=== PATIENT | female | born 1990 | race Caucasian/White ===

== ENCOUNTER 2017-08-18 12:30 | Emergency (ER) | payer SELFPAY ==
--- NOTE | 2017-08-18 13:52 | ER Document Report ---
ED Medical Screen (RME) - General Chief Complaint: Vag Bleeding, +preg <12wks Stated Complaint: VAGINAL BLEEDING Time Seen by Provider: 08/18/17 13:50 Notes: pt states she is 6 weeks preg. no care yet. . Has had three days of cramping and bleeding TRAVEL OUTSIDE OF THE [place] IN LAST 30 DAYS: No - Related Data Allergies/Adverse Reactions: Pertussis Vaccines Allergy (Verified 08/18/17 12:31) venlafaxine [From Effexor] Allergy (Verified 08/18/17 12:31) Past Medical History - General Last Menstrual Period: 07/04/17 - Social History Frequency of alcohol use: None Drug Abuse: None Renal/ Medical History: Denies: Hx Peritoneal Dialysis Physical Exam - Vital signs Vitals: Temp Pulse Resp BP Pulse Ox 98.5 F 99 18 130/79 H 100 08/18/17 12:54 08/18/17 12:54 08/18/17 12:54 08/18/17 12:54 08/18/17 12:54 Course - Vital Signs Vital signs: Temp Pulse Resp BP Pulse Ox 98.5 F 99 18 130/79 H 100 08/18/17 12:54 08/18/17 12:54 08/18/17 12:54 08/18/17 12:54 08/18/17 12:54
[2017-08-18 14:32] LABS: ABSOLUTE EOSINOPHILS # (AUTO) 0.1 10^3/uL (0.0-0.6); ABSOLUTE LYMPHOCYTES (AUTO) 1.8 10^3/uL (0.5-4.7); ABSOLUTE MONOCYTES (AUTO) 0.7 10^3/uL (0.1-1.4); BASOPHILS % (AUTO) 0.5 % (0-2); EOSINOPHILS % (AUTO) 1.3 % (0-6); HEMATOCRIT 43.7 % (36.0-47.0); HEMOGLOBIN 14.7 g/dL (12.0-15.5); LYMPHOCYTES % (AUTO) 21.3 % (13-45); MEAN CORPUSCULAR HEMOGLOBIN 29.2 pg (27.0-33.4); MEAN CORPUSCULAR HGB CONC 33.7 g/dL (32.0-36.0); MEAN CORPUSCULAR VOLUME 87 fl (80-97); MONOCYTES % (AUTO) 8.2 % (3-13); PLATELET COUNT 205 10^3/uL (150-450); RED BLOOD COUNT 5.06 10^6/uL (3.72-5.28); RED CELL DISTRIBUTION WIDTH 12.7 % (11.5-14.0); SEGMENTED NEUTROPHILS % (AUTO) 68.7 % (42-78); TOTAL CELLS COUNTED % (AUTO) 100 %; WHITE BLOOD COUNT 8.7 10^3/uL (4.0-10.5)
[2017-08-18 14:40] LABS: APPEARANCE,URINE SLIGHTLY-CLOUDY; BILIRUBIN,URINE NEGATIVE (NEGATIVE); GLUCOSE, URINE NEGATIVE (NEGATIVE); KETONES,URINE NEGATIVE (NEGATIVE); LEUKOCYTE ESTERASE,URINE NEGATIVE (NEGATIVE); NITRITE,URINE NEGATIVE (NEGATIVE); PROTEIN,URINE 30 mg/dL (NEGATIVE); URINE SPECIFIC GRAVITY 1.004; UROBILINOGEN,URINE NEGATIVE mg/dL (<2.0)
[2017-08-18 14:49] LABS: ALANINE AMINOTRANSFERASE 25 U/L (9-52); ALBUMIN 4.5 g/dL (3.5-5.0); ALKALINE PHOSPHATASE 62 U/L (38-126); ANION GAP 10 (5-19); ASPARTATE AMINO TRANSFERASE 22 U/L (14-36); BILIRUBIN,DIRECT 0.3 mg/dL (0.0-0.4); BILIRUBIN,TOTAL 0.6 mg/dL (0.2-1.3); BLOOD UREA NITROGEN 8 mg/dL (7-20); CALCIUM 9.6 mg/dL (8.4-10.2); CARBON DIOXIDE 25 mmol/L (22-30); CHLORIDE 105 mmol/L (98-107); GLUCOSE 94 mg/dL (75-110); LIPASE 120.6 U/L (23-300); POTASSIUM 3.7 mmol/L (3.6-5.0); SODIUM 140.3 mmol/L (137-145); TOTAL PROTEIN 8.2 g/dL (6.3-8.2)
--- NOTE | 2017-08-18 15:54 | ER Document Report ---
ED General - General Mode of Arrival: Ambulatory Information source: Patient TRAVEL OUTSIDE OF THE [place] IN LAST 30 DAYS: No <DELTA ABERNATHY - Last Filed: 08/18/17 16:17> <MARVIN HUDSON - Last Filed: 08/18/17 22:24> - General Chief Complaint: Vag Bleeding, +preg <12wks Stated Complaint: VAGINAL BLEEDING Time Seen by Provider: 08/18/17 13:50 Notes: Patient is a 27 year old female presenting to the emergency department complaining of vaginal bleeding and cramps while being 6 weeks . Patient states she went to the health department approximately 2 weeks ago to confirm her . Patient states that her bleeding started out as spotting 3 days ago and has progressively worsened today. Patient states she is now capable to fill up a pad. 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 Patient states she also noticed some blood in the toilet when he urinates. Patients LMP was on 2017. (DELTA ABERNATHY) - Related Data Allergies/Adverse Reactions: Pertussis Vaccines Allergy (Verified 08/18/17 12:31) venlafaxine [From Effexor] Allergy (Verified 08/18/17 12:31) Past Medical History - General Information source: Patient Last Menstrual Period: 07/04/17 - Social History Smoking Status: Never Smoker Frequency of alcohol use: None Drug Abuse: None Family History: Reviewed & Not Pertinent Patient has suicidal ideation: No Patient has homicidal ideation: No <DELTA ABERNATHY - Last Filed: 08/18/17 16:17> Review of Systems - Review of Systems Constitutional: No symptoms reported EENT: No symptoms reported Cardiovascular: No symptoms reported Respiratory: No symptoms reported Gastrointestinal: No symptoms reported Genitourinary: No symptoms reported Female Genitourinary: See HPI, , Vaginal bleeding Musculoskeletal: No symptoms reported Skin: No symptoms reported Hematologic/Lymphatic: No symptoms reported Neurological/Psychological: No symptoms reported -: Yes All other systems reviewed and negative <DELTA ABERNATHY - Last Filed: 08/18/17 16:17> Physical Exam <DELTA ABERNATHY - Last Filed: 08/18/17 16:17> <MARVIN HUDSON - Last Filed: 08/18/17 22:24> - Vital signs Vitals: Temp Pulse Resp BP Pulse Ox 98.5 F 99 18 130/79 H 100 08/18/17 12:54 08/18/17 12:54 08/18/17 12:54 08/18/17 12:54 08/18/17 12:54 - Notes Notes: GENERAL: Alert, interacts well. No acute distress. HEAD: Normocephalic, atraumatic. EYES: Pupils equal, round, and reactive to light. Extraocular movements intact. ENT: Oral mucosa moist, tongue midline. NECK: Full range of motion. Supple. Trachea midline. LUNGS: Clear to auscultation bilaterally, no wheezes, rales, or rhonchi. No respiratory distress. HEART: Regular rate and rhythm. No murmurs, gallops, or rubs. ABDOMEN: Soft, non-tender. Non-distended. Bowel sounds present in all 4 quadrants. EXTREMITIES: Moves all 4 extremities spontaneously. NEUROLOGICAL: Alert and oriented x3. Normal speech. PSYCH: Normal affect, normal mood. SKIN: Warm, dry, normal turgor. No rashes or lesions noted. (DELTA ABERNATHY) Course - Laboratory Result Diagrams: 08/18/17 14:18 08/18/17 14:18 <DELTA ABERNATHY - Last Filed: 08/18/17 16:17> - Laboratory Result Diagrams: 08/18/17 14:18 08/18/17 14:18 <AMRVIN HUDSON - Last Filed: 08/18/17 22:24> - Re-evaluation Re-evalutation: 08/18/17 15:55 CBC unremarkable, CMP unremarkable, quantitative beta-hCG is 48.73 which is consistent with miscarriage with a downtrending hCG given the fact that she had a positive test 2 weeks ago as well as before that. Patient blood type is B+ so RhoGam is not indicated. Discussed with patient the importance of following up with the health department to repeat a quantitative hCG in approximately 1 week to ensure that it goes completely negative. Discussed pelvic rest and not trying for again for at least a month. Discharged home. (MARVIN HUDSON) - Vital Signs Vital signs: Temp Pulse Resp BP Pulse Ox 98.0 F 86 16 115/69 98 08/18/17 16:04 08/18/17 16:04 08/18/17 16:04 08/18/17 16:04 08/18/17 16:04 - Laboratory Laboratory results interpreted by me: 08/18/17 08/18/17 14:18 14:18 Beta HCG, Quant 48.73 H Urine Protein 30 H Urine Blood LARGE H Discharge <DELTA ABERNATHY - Last Filed: 08/18/17 16:17> <MARVIN HUDSON - Last Filed: 08/18/17 22:24> - Discharge Clinical Impression: Spontaneous miscarriage Condition: Stable Disposition: HOME, SELF-CARE Additional Instructions: Today your hormone level (quantitative beta-hCG) was 48.73. This is low enough that it indicates that you have had a miscarriage. You will want to follow-up with the health department to have your blood tests repeated in approximately 2 weeks to ensure that it is gone completely to 0. Your blood type is B+. It means you do not need RhoGam. Do not put anything in your vagina until you have finished bleeding. That means no sex or and no tampons. Please return to the emergency department for heavier bleeding, worsening pain or any new or concerning symptoms. [facility]NO [facility]AL [facility] - Follow up in 1 week Scribe Attestation: 08/18/17 22:24 I personally performed the services described in the documentation, reviewed and edited the documentation which was dictated to the scribe in my presence, and it accurately records my words and actions. (MARVIN HUDSON) Scribe Documentation - Scribe Written by Nichole:: Nichole Ann, 08/18/2017 16:14 acting as scribe for :: Tommie <DELTA ABERNATHY - Last Filed: 08/18/17 16:17>
[2017-08-18 16:08] VITALS: BP 115/69
== END 2017-08-18 16:09 | disposition home or self-care (01) ==
LOC: ER 12:30
DX: O03.9 Complete or unspecified spontaneous abortion without complication (principal); O46.91 Antepartum hemorrhage, unspecified, first trimester; Z3A.01 Less than 8 weeks gestation of pregnancy
CPT/HCPCS: 36415; 80053; 81001; 83690; 84702; 85025; 86900; 86901; 99284